=== PATIENT | male | born 1980 | race Caucasian/White ===

== ENCOUNTER 2020-09-29 16:19 | Emergency (ER) | payer OTHER, BC, SELFPAY ==
[2020-09-29 16:20] VITALS: BP 182/78; PULSE 87; RESP 18; TEMP 35.8; O2SAT 98; BMI 36.9
--- NOTE | 2020-09-29 16:34 | ED.VIS.GEN ---
History of Present Illness Chief Complaint: Upper Extremity Injury Narrative: This patient is a 40-year-old male who presents with a right hand injury. This was work-related. He had a gait on a cage come down and crushed the ends of his right second third and fourth fingers. There is deformity at the DIP of the right ring finger and abrasions on the back of the tips of the second and third fingers. No other injuries. He otherwise denies any recent illness. No weakness or loss of function. Past Medical History - Allergies and Home Meds Allergies/Adverse Reactions: Allergies No Known Allergies Allergy (Verified 09/29/20 16:22) Past Medical History: None Review of Systems All systems negative except as indicated General: Denies: Fever Cardiovascular: Denies: Chest pain Respiratory: Denies: Dyspnea Gastrointestinal: Denies: Vomiting, Diarrhea Skin: Denies: Rash Neurological: Denies: Headache Physical Exam Vital Signs/Narrative: Vital Signs Temp Pulse Resp BP Pulse Ox 09/29/20 16:20 96.5 F L 87 18 182/78 H 98 Inital Vital Signs reviewed: Yes General: Well nourished Head: Normocephalic Eyes: EOMI ENT: Moist mucous membranes Cardiovascular: Regular rate Respiratory: No distress Extremities: - - The DIP of the right ring finger is held in the flexed position he has abrasions just proximal to the nail on the dorsal side of the distal second and third fingers no full-thickness laceration sensation intact active full range of motion brisk capillary refill Skin: Normal color Neurological: Alert Psychological: Normal affect Diagnostic/Tx/Re-eval Impressions Hand X-Ray 09/29/20 16:35 IMPRESSION: Unremarkable x-ray examination of the hand. Electronically Signed: David Cabello MD at 17:06 EST , Service support , 09/29/20 16:35 Xray Hand [Hand Min 3 Views] [RAD] Stat - Medical Decision Making 3 view x-ray of the right hand was obtained. There is a small bony avulsion overlying the dorsal aspect of the middle phalanx of the ring finger. No dislocation. Patient has a mallet finger injury. He was placed in a splint. He was referred to orthopedics for follow-up. He was also advised on supportive care such as rest ice elevation. ED Disposition - Plan for ED Patient: Disposition: Home or Assisted Living Diagnosis: Mallet finger of right hand Instructions: ED Mallet Finger Referrals: Care Physician,No Primary [Primary Care Provider] - Breana Medina DO [STAFF PHYSICIAN] -
--- NOTE | 2020-09-29 16:35 | RAD_ITS ---
STUDY: X-RAY - RIGHT HAND REASON FOR EXAM: Male, 40 years old. crush injury fingers TECHNIQUE: 3 view(s) of the hand. COMPARISON: None. FINDINGS: Normal radiocarpal articulation. Normal distal radioulnar joint. Normal visualized carpal bones. Normal carpal articulations Normal carpometacarpal articulation of the thumb. Normal second through fifth carpometacarpal joints. Normal metacarpi. Small cortical bump seen in the proximal shaft of the fifth metatarsal bone, likely represents a normal variant versus a tiny osteochondroma. Normal joints. No demonstrated fracture. The soft tissue structures are unremarkable. RAD/Hand Min 3 Views IMPRESSION: Unremarkable x-ray examination of the hand. Electronically Signed: David Cabello MD at 17:06 EST , Service support ,
[2020-09-29] MEDS: Diphth,Pertuss(Acell),Tet Vac 0.5 ML Vial IM (17:25)
== END 2020-09-29 17:26 | disposition home or self-care (01) ==
PROVIDERS: Emergency Provider Emergency Medicine
DX: M20.011 Mallet finger of right finger(s) (principal); S60.410A Abrasion of right index finger, initial encounter; S60.412A Abrasion of right middle finger, initial encounter; Z23 Encounter for immunization; W20.8XXA Other cause of strike by thrown, projected or falling object, initial encounter; Y93.9 Activity, unspecified; Y92.9 Unspecified place or not applicable; Y99.0 Civilian activity done for income or pay
CPT/HCPCS: 73130; 90471; 90715; 99283

== ENCOUNTER 2020-12-06 09:00 | Outpatient (RCR) | payer OTHER, SELFPAY ==
--- NOTE | 2020-11-22 10:34 | HP.OTEVAL ---
Patient's Visit Information OMAIRA GONZALEZ is a 40 year old M, referred to Occupational Therapy by SABA Moulton, with a diagnosis of right mallet finger. Date of Evaluation: 11/22/20 Occupational Therapist: Constance Deluca, DAVE/Zulma, CHT - Subjective This 40 year old male was seen for OT eval with dx of right RF mallet finger- pt states DOI was 09/29/20. pt states he has been splinted completely straight for 6 weeks- pt is right handed- pt states he notices sensation to the tip is more sensitive. - Pain right hand 1 Pain Intensity Range: 3, 4 - ROM DIP: right RF -15/40 left +10/55 ROM Comments: pt demo with a 15* extensor lag - Strength Sap Data Architect: right 60# left 95# Lateral Pinch: right 26# left 20# Tripod Pinch: right 28# left 20# - Edema DIP: right RF 5.5 left 5.5 - Sensation Middle: right 2.44 left 2.44 Ring: right 2.44 left 2.44 Sensation Comments: pt states temp. 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 by d/c Goal:: pt will report pain no greater than 1/10 with use of right hand with ADLs and IADLs by d/c - Rehabilitation General Assessment: pt demo at 6 weeks post mallet finger splinting for 6 weeks and now splint is off and is using his hand with daily occupations. pt demo with limited strength and ROM increasing time with ADLs and IADLs - pt would benefit from skilled OT services 2x week for 3 weeks to return pt to PLOF. pt ed. on nerve hypersensitivity, return to normal use/break after 25 min of use to rest hand- cont.with splint for night use Rehabilitation Potential: Good - Anticipated Interventions A/AAROM/PROM, Strengthening, Sensory Retraining, Modalities, Orthoses, Joint Protection/Energy Conservation, Ergonomic Education, Fine Motor Coord/Kleber - Visit Plan Frequency: 2-3x /Week Duration: 3 Weeks TEXT: Thank you for the opportunity to evaluate your patient. For Medicare and Medicare HMO plans, please review the plan of care and approve it. It will need to be FAXED BACK to us at [phone] for Medicare purposes. Please let me know if there are questions or concerns regarding this plan of care. Physician Signature: Date:
--- NOTE | 2020-12-06 09:25 | HP.OTDCSUM ---
It has been my pleasure to treat OMAIRA GONZALEZ under orders from SAAB Moulton, for the diagnosis of right mallet finger for a total of 5 visit(s). Please see the following information for a summary of their discharge status. 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 right DIP ROM - (pt states he did not sleep in his orthosis last night so finger isnt as straight - pt reports he is ind. with All ADLS and IADL Patient Goals: Use Hand/Wrist/Arm Normally Again, Increase ROM, Be More Independent in ADLS Goal:: pt will demo a increase in right document preparer microfilming strength to 85# or greater to return pt to PLOF by d/c Goal:: pt will demo right DIP ROM at -* to form a full composite fist ind. by d/c Goal:: pt will report pain no greater than 1/10 with use of right hand with ADLs and IADLs by d/c Plan: d/c Discharge Comments: pt was seen for OT 5 OT visits- pt made great gains with strength and is compliant with doing his HEP- as orthosis use at night- desensitization- pt is aware that sensitivity in tip of his finger could last for about a year- pt is to cont with orthosis at night and desensitization- pt has met OT goals and is D/C If there are questions or concerns regarding this patient's occupational therapy, please fell free to call me at [phone]. Thank you for the referral of this patient. Sincerely, Constance Deluca, OTR/L, CHT
== END 2020-12-06 19:00 | disposition home or self-care (01) ==
LOC: OT 09:00
PROVIDERS: Referring Provider Physician Assistant; Visit Provider Physician Assistant
DX: M20.011 Mallet finger of right finger(s) (principal)
CPT/HCPCS: 97110; 97165; 97166; 97530

== ENCOUNTER → 2025-03-04 | Outpatient (CLI) | payer BC, SELFPAY ==
--- NOTE | 2025-03-04 16:15 | RAD_ITS ---
PROCEDURE: RIGHT FOOT MIN 3 VIEWS 03/04/2025 REASON FOR EXAM: PAIN TECHNIQUE: RIGHT FOOT MIN 3 VIEWS COMPARISON: None. FINDINGS: No acute fracture or dislocation. Alignment is anatomic. Preserved joint spaces. No aggressive osseous lesion. No marked soft tissue swelling or radiopaque foreign body. RAD/Foot min 3 Views IMPRESSION: No acute fracture or dislocation. Reading Location: [id number]
== END | disposition home or self-care (01) ==
LOC: MTLAB 16:14 → MTRAD 16:14
PROVIDERS: Referring Provider Physician Assistant; Visit Provider Physician Assistant
DX: M79.671 Pain in right foot (principal)
CPT/HCPCS: 73630